=== PATIENT | female | born 1985 ===

== ENCOUNTER 2021-02-13 08:36 | Emergency (ER) | payer OTHER ==
--- NOTE | 2021-02-13 09:35 | Emergency Department Report ---
ED Abdominal Pain HPI - General Chief Complaint: Abdominal Pain Stated Complaint: LT FLANK PAIN Time Seen by Provider: 02/13/21 09:09 Source: EMS Mode of arrival: Ambulatory Limitations: No Limitations - History of Present Illness Initial Comments: 35 yr old female with no significant pmhx was brought to ED by EMS with c/o left lower quadrant radiating into her Left lower back. Onset 1 week. It had been intermittent but got worse last night. She states she vomited about 5 times today. She reports urinary urgency and decrease urine output, and mild discomfort with urination. She denies any bowel changes. She denies abnl vag discharge. She denies any fever or chills. She states her last MC was 2 weeks ago. She is s/p tubal ligation. She also had BBL and lipo suction 11/26/2020. She states her symptoms have improved after getting meds from EMS. MD Complaint: abdominal pain -: week(s) (1) - Related Data Previous Rx's Medication Instructions Recorded Last Taken Type HYDROcodone/APAP 5-325 [Bovey 1 each PO Q4HR PRN #12 tablet 02/13/21 Unknown Rx 5/325] Ketorolac [Toradol] 10 mg PO Q6H PRN #20 tablet 02/13/21 Unknown Rx Ondansetron [Zofran Odt] 4 mg PO Q8HR PRN #15 tab.rapdis 02/13/21 Unknown Rx Tamsulosin [Flomax] 0.4 mg PO QDAY #5 cap 02/13/21 Unknown Rx metroNIDAZOLE [Flagyl] 500 mg PO Q12HR #14 tab 02/13/21 Unknown Rx Allergies Allergy/AdvReac Type Severity Reaction Status Date / Time No Known Allergies Allergy Unverified 02/13/21 08:40 ED Review of Systems ROS: Stated complaint: LT FLANK PAIN Other details as noted in HPI Comment: All other systems reviewed and negative Constitutional: denies: chills, diaphoresis, fever, malaise, weakness Eyes: denies: eye pain, eye discharge, vision change ENT: denies: ear pain, throat pain Respiratory: denies: cough, shortness of breath, SOB with exertion, SOB at rest, wheezing Cardiovascular: denies: chest pain, palpitations, dyspnea on exertion, edema, syncope, paroxysmal nocturnal dyspnea Gastrointestinal: abdominal pain, nausea, vomiting Genitourinary: urgency, dysuria, other (decrease urine output). denies: frequency, hematuria, discharge, abnormal menses, dyspareunia Musculoskeletal: denies: back pain, joint swelling, arthralgia, myalgia Skin: denies: rash, lesions, change in color, change in hair/nails, pruritus Neurological: denies: headache, weakness, paresthesias Psychiatric: denies: anxiety, depression, auditory hallucinations, visual hallucinations, homicidal thoughts, suicidal thoughts Hematological/Lymphatic: denies: easy bleeding, easy bruising ED Past Medical Hx - Past Medical History Previous Medical History?: No - Surgical History Additional Surgical History: LIPOSUCTION - Social History Smoking Status: Never Smoker Substance Use Type: None - Medications Home Medications: Home Medications Medication Instructions Recorded Confirmed Last Taken Type HYDROcodone/APAP 5-325 [Bovey 1 each PO Q4HR PRN #12 tablet 02/13/21 Unknown Rx 5/325] Ketorolac [Toradol] 10 mg PO Q6H PRN #20 tablet 02/13/21 Unknown Rx Ondansetron [Zofran Odt] 4 mg PO Q8HR PRN #15 tab.rapdis 02/13/21 Unknown Rx Tamsulosin [Flomax] 0.4 mg PO QDAY #5 cap 02/13/21 Unknown Rx metroNIDAZOLE [Flagyl] 500 mg PO Q12HR #14 tab 02/13/21 Unknown Rx ED Physical Exam - General Limitations: No Limitations General appearance: alert, in no apparent distress - Head Head exam: Present: atraumatic, normocephalic, normal inspection - Eye Eye exam: Present: normal appearance, PERRL, EOMI Pupils: Present: normal accommodation - ENT ENT exam: Present: normal exam, mucous membranes moist - Respiratory Respiratory exam: Present: normal lung sounds bilaterally. Absent: respiratory distress - Cardiovascular Cardiovascular Exam: Present: regular rate, normal rhythm, normal heart sounds - GI/Abdominal GI/Abdominal exam: Present: soft, other (abd normal to inspection. Surgical wounds healing well. ). Absent: distended, tenderness, guarding, rebound - External exam: Present: normal external exam Speculum exam: Present: vaginal discharge (scant white d/c). Absent: cervical discharge, vaginal bleeding, foreign body, tissue, laceration Bi-manual exam: Absent: cervical motion tendernes, adnexal tenderness, adnexal mass, uterine enlargement, uterine tenderness - Extremities Exam Extremities exam: Present: normal inspection, full ROM. Absent: pedal edema - Back Exam Back exam: Present: normal inspection. Absent: CVA tenderness (R), CVA tenderness (L) - Neurological Exam Neurological exam: Present: alert, oriented X3, CN II-XII intact, normal gait - Psychiatric Psychiatric exam: Present: normal mood - Skin Skin exam: Present: intact ED Course Vital Signs 02/13/21 02/13/21 08:41 11:56 Temperature 98.2 F Pulse Rate 77 Respiratory 18 18 Rate Blood Pressure 132/72 O2 Sat by Pulse 100 Oximetry ED Medical Decision Making - Lab Data Result diagrams: 02/13/21 09:24 02/13/21 09:24 - Radiology Data Radiology results: report reviewed Patient: LAKIA HERMAN MR#: [id number] : 1985 Acct:[id number] Age/Sex: 35 / F ADM Date: 02/13/21 Loc: ED Attending Dr: Ordering Physician: LIBORIO ESPINOZA Date of Service: 02/13/21 Procedure(s): CT abdomen pelvis w con Accession Number(s): [id number] cc: LIBORIO ESPINOZA CT ABDOMEN AND PELVIS WITH CONTRAST INDICATION / CLINICAL INFORMATION: Left lower quadrant pain, left flank pain. TECHNIQUE: Axial CT images were obtained through the abdomen and pelvis after 100 cc Omnipaque [address] scans at this location are performed using CT dose reduction for ALARA by means of automated exposure control. COMPARISON: None available. FINDINGS: LOWER CHEST: No significant abnormality. LIVER: No significant abnormality. GALLBLADDER: No significant abnormality. BILE DUCTS: No significant abnormality. PANCREAS: No significant abnormality. SPLEEN: No significant abnormality. ADRENALS: No significant abnormality. RIGHT KIDNEY / URETER: No significant abnormality. LEFT KIDNEY / URETER: There is mild left hydroureteronephrosis secondary to a U VJ stone measuring up to 3.4 mm on image 75 of series 4. No other significant abnormality. STOMACH / SMALL BOWEL: No significant abnormality. COLON: No significant abnormality. APPENDIX: No significant abnormality. PERITONEUM: Likely physiologic trace free fluid along the pelvis. No other free fluid. No free air. No fluid collection. LYMPH NODES: No significant adenopathy. AORTA / ARTERIES: No significant abnormality. IVC / VEINS: No significant abnormality. URINARY BLADDER: No significant abnormality. REPRODUCTIVE ORGANS: No significant abnormality. ADDITIONAL FINDINGS: None. SKELETAL SYSTEM: No significant abnormality. IMPRESSION: Mildly obstructive left UVJ stone measuring 3.4 mm. Signer Name: Clif Gonzales MD Signed: 02/13/2021 1:38 PM Workstation Name: [id number] Transcribed By: MN Dictated By: Clif Gonzales MD Electronically Authenticated By: Clif Gonzales MD Signed Date/Time: 02/13/211337 DD/ 34 TD/TT: - Medical Decision Making 1401: CT abdomen pelvis with IV contrast shows Mildly obstructive left UVJ stone measuring 3.4 mm; labs shows a normal white count, normal renal functions, and urinalysis appears to be more contaminated than true UTI; wet prep concerning for BV . Patient currently resting comfortably. She reports improvement of her pain after meds. She has not had any vomiting during stay. She currently is not in any acute distress. She is well-appearing and nontoxic. She does not appear dehydrated. Discussed labs and CT results and diagnosis with patient. Discussed treatment plan with patient. At this time there is no indication for emergent consult or admission. Recommend that she increase her water intake and follow-up with primary care doctor or the urologist listed on her discharge instructions. Did discuss worsening signs and symptoms with patient and informed her to return immediately if those signs and symptoms develop. Patient expressed understanding of instructions and agree with plan. Patient stable at time of discharge. Critical care attestation.: If time is entered above; I have spent that time in minutes in the direct care of this critically ill patient, excluding procedure time. ED Disposition Clinical Impression: Kidney stone on left side, Bacterial vaginosis Disposition: DC-01 TO HOME OR SELFCARE Is pt being admited?: No Does the pt Need Aspirin: No Condition: Stable Instructions: Kidney Stones, Bacterial Vaginosis, [id number], Bacterial Vaginosis (ED), Abdominal Pain (ED) Additional Instructions: I recommend that you drink lots of water. Also recommend that you take the Flagyl as prescribed. Do not drink alcohol while taking flagyl. Take the Toradol, Zofran, hydrocodone and the Flomax also as prescribed. Follow-up with the primary care doctor and/or the urologist listed on your discharge instructions. Return to the ER if your pain becomes uncontrollable, if you have uncontrolled nausea vomiting and develop fever of 100.5 or higher. Prescriptions: metroNIDAZOLE [Flagyl] 500 mg PO Q12HR #14 tab Tamsulosin [Flomax] 0.4 mg PO QDAY #5 cap HYDROcodone/APAP 5-325 [Bovey 5/325] 1 each PO Q4HR PRN #12 tablet PRN Reason: Pain , Severe (7-10) Ketorolac [Toradol] 10 mg PO Q6H PRN #20 tablet PRN Reason: Pain Ondansetron [Zofran Odt] 4 mg PO Q8HR PRN #15 tab.rapdis PRN Reason: Vomiting Referrals: KAYLYN ISAACS MD [Primary Care Provider] - 3-5 Days PASCUAL GIBSON MD [Staff Physician] - 3-5 Days Forms: STI Treatment and Prevention Time of Disposition: 13:54
[2021-02-13 09:53] LABS: Basophils % (Auto) 0.6 % (0.0-1.8); Eosinophils % (Auto) 0.3 % (0.0-4.3); Hemoglobin 10.8 gm/dl (10.1-14.3); Lymphocytes # (Auto) 0.8 K/mm3 (1.2-5.4); Lymphocytes % (Auto) 9.7 % (13.4-35.0); Mean Corpuscular HGB Conc 34 % (30-34); Mean Corpuscular Volume 94 fl (79-97); Monocytes # (Auto) 0.4 K/mm3 (0.0-0.8); Monocytes % (Auto) 5.5 % (0.0-7.3); Platelet Count 282 K/mm3 (140-440); Red Blood Count 3.42 M/mm3 (3.65-5.03); Red Cell Distribution Width 14.7 % (13.2-15.2)
[2021-02-13 10:18] LABS: Alanine Aminotransferase 20 units/L (7-56); Albumin 4.1 g/dL (3.9-5); BUN/Creatinine Ratio 12; Blood Urea Nitrogen 11 mg/dL (7-17); Calcium 9.2 mg/dL (8.4-10.2); Hemolysis Index 8
[2021-02-13 10:42] LABS: Bacteria,Urine 1+ /HPF (Negative); Bilirubin,Urine NEG (Negative); Blood,Urine SM (Negative); Calcium Oxalate Crystals,Urine 2+; Color,Urine Amber (Yellow); Mucus,Urine 3+ /HPF; Urobilinogen,Urine < 2.0 mg/dL (<2.0)
[2021-02-13] MEDS ORDERED: HYDROcodone/ACETAMINOPHEN 5-325 MG TAB PO ONE (11:51)
--- NOTE | 2021-02-13 13:42 | Cat Scan Report ---
CT ABDOMEN AND PELVIS WITH CONTRAST INDICATION / CLINICAL INFORMATION: Left lower quadrant pain, left flank pain. TECHNIQUE: Axial CT images were obtained through the abdomen and pelvis after 100 cc Omnipaque [address] scans at this location are performed using CT dose reduction for ALARA by means of automated exposure control. COMPARISON: None available. FINDINGS: LOWER CHEST: No significant abnormality. LIVER: No significant abnormality. GALLBLADDER: No significant abnormality. BILE DUCTS: No significant abnormality. PANCREAS: No significant abnormality. SPLEEN: No significant abnormality. ADRENALS: No significant abnormality. RIGHT KIDNEY / URETER: No significant abnormality. LEFT KIDNEY / URETER: There is mild left hydroureteronephrosis secondary to a UVJ stone measuring up to 3.4 mm on image 75 of series 4. No other significant abnormality. STOMACH / SMALL BOWEL: No significant abnormality. COLON: No significant abnormality. APPENDIX: No significant abnormality. PERITONEUM: Likely physiologic trace free fluid along the pelvis. No other free fluid. No free air. N o fluid collection. LYMPH NODES: No significant adenopathy. AORTA / ARTERIES: No significant abnormality. IVC / VEINS: No significant abnormality. URINARY BLADDER: No significant abnormality. REPRODUCTIVE ORGANS: No significant abnormality. ADDITIONAL FINDINGS: None. SKELETAL SYSTEM: No significant abnormality. IMPRESSION: Mildly obstructive left UVJ stone measuring 3.4 mm. Signer Name: Clif Gonzales MD Signed: 02/13/2021 1:38 PM Workstation Name: [id number]
[2021-02-13 14:17] VITALS: BP 129/54
== END 2021-02-13 14:17 | disposition home or self-care (01) ==
LOC: ED 08:36
DX: N20.0 Calculus of kidney (principal); N76.0 Acute vaginitis; B96.89 Other specified bacterial agents as the cause of diseases classified elsewhere; Z98.890 Other specified postprocedural states; Z79.899 Other long term (current) drug therapy
CPT/HCPCS: 36415; 74177; 80053; 81001; 83690; 84703; 85025; 87086; 87210; 87591; Q9967